=== PATIENT | female | born 1980 | race Hispanic/Latino ===

== ENCOUNTER 2023-02-21 19:23 | Emergency (ER) | payer BC ==
[~2023-02-21] VITALS: Ht 160 cm; Wt 78.5 kg
--- OUTSIDE RECORDS SUMMARY | 2023-02-21 19:29 | XMS ---
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 Karena has no Care Guidelines for this patient. Shanelle VISIT COUNT (12 MO.) 1 SHANELL Leon TOTAL 1 NOTE: Visits indicate total known visits. ED/UCC VISIT TRACKING (12 MO.) 02/21/2023 19:25 SHANELL Jose OR TYPE: Emergency COMPLAINT: - LEG AND BACK PAIN INPATIENT VISIT TRACKING (12 MO.) No inpatient visits to display in this time frame [email or web address]
[2023-02-21] MEDS ORDERED: PERCOCET 5-3251 EACH PO (20:39)
[2023-02-21] MEDS ORDERED: CYCLOBENZAPRINE10 MG PO (20:39)
[2023-02-21 20:55] VITALS: BP 113/69
== END 2023-02-21 20:56 | disposition home or self-care (01) ==
LOC: ED 19:23
DX: M54.42 Lumbago with sciatica, left side (principal); G71.00 Muscular dystrophy, unspecified; E11.9 Type 2 diabetes mellitus without complications
CPT/HCPCS: 99283